=== PATIENT | male | born 1990 | race African-American/Black ===

== ENCOUNTER 2020-11-17 14:27 | Inpatient (IN) | payer OTHER, SELFPAY ==
--- NOTE | 2020-11-17 | ECG_ITS ---
Test Reason : CP Blood Pressure : / mmHG Vent. Rate : 057 BPM Atrial Rate : 057 BPM P-R Int : 186 ms QRS Dur : 084 ms QT Int : 422 ms P-R-T Axes : 062 041 057 degrees QTc Int : 410 ms Sinus bradycardia Otherwise normal ECG No previous ECGs available Referred By: Generic ED Physician Electronically Signed By:MAYANK GONZALEZ
--- NOTE | ~2020-11-17 | XR_ITS ---
EXAMINATION: XR chest 2V CLINICAL INFORMATION: Chest pain COMPARISON: No prior chest x-ray available in our system for comparison at the time of this dictation. TECHNIQUE: XR chest 2V Lungs and Precious: Both lungs are clear. Pleura: Normal. Costophrenic angles are sharp. No pneumothorax. Heart: The heart is normal in size. Mediastinum: The mediastinum is within normal limits.. Bones: Skeletal structures included are normal for patient's age. XR/XR chest 2V IMPRESSION: Normal chest x-ray.
[2020-11-17 14:30] VITALS: BP 111/62; PULSE 69; O2SAT 100
[2020-11-17 16:12] VITALS: BP 114/68; PULSE 60; RESP 18; TEMP 36.6; O2SAT 100; BMI 21.7
--- NOTE | 2020-11-17 18:08 | PC.NURSE ---
records being obtained from [facility], pt requesting us guided iv
--- NOTE | 2020-11-17 18:12 | ED.CHESTPAIN ---
HPI - Chest Pain General Chief Complaint: Chest Pain Stated Complaint: ACHY BREAKY HEART Time Seen by Provider: 11/17/20 16:32 Source: patient Mode of arrival: ambulatory Limitations: no limitations History of Present Illness HPI narrative: 30-year-old male with a past medical history of sickle cell disease coming in with complaints of body aches all over and chest discomfort which began last evening. Pain is constant. Denies any shortness of breath or cough. No fevers or chills. Feels similar to his previous sickle cell crisis. Took 4 mg of p.o. Dilaudid prior to arrival with continued pain. Note patient currently lives in [place] but is here visiting a friend. He tells me he normally goes to [facility] for his care and was admitted there 1 month ago for sickle cell crisis. He denies any history of acute chest. Related Data Home Medications Medication Instructions Recorded Confirmed folic acid 1 mg tablet 1 mg PO DAILY 11/17/20 11/17/20 hydromorphone 4 mg tablet 4 mg PO Q4H PRN 11/17/20 11/17/20 hydroxyurea 500 mg capsule 500 mg PO DAILY 11/17/20 11/17/20 Allergies Allergy/AdvReac Type Severity Reaction Status Date / Time ketorolac [From TORADOL] Allergy Unknown HIVES Unverified 12/14/19 19:40 morphine [MORPHINE] Allergy Unknown HIVES Unverified 12/14/19 19:40 shellfish derived Allergy Unknown HIVES Unverified 12/14/19 19:40 [SHELLFISH DERIVED] Review of Systems Review of Systems: Yes all other systems are reviewed and are negative Constitutional: Constitutional: Reports no additional constitutional complaints, Reports body ache(s), Denies chills, Denies fever(s), Denies headache(s) and Denies weakness Comments: Muscle ache Eyes: Eyes: Reports no additional eye complaints and Denies change in vision ENT: Reports system reviewed and no additional complaints, except as documented, Denies dizziness, Denies headache(s), Denies nasal congestion, Denies nasal discharge and Denies neck pain Cardiovascular: Cardiovascular: Reports no additional cardiovascular complaints, Reports chest pain, Denies leg edema and Denies dyspnea Respiratory: Respiratory: Reports no additional respiratory complaints, Denies cough and Denies dyspnea Gastrointestinal: Gastrointestinal: Reports no additional gastrointestinal complaints, Denies abdominal pain, Denies diarrhea, Denies nausea and Denies vomiting Genitourinary: Genitourinary: Denies urinary incontinence Musculoskeletal: Musculoskeletal: Reports no additional musculoskeletal complaints, Denies back pain, Denies arthralgias, Denies joint swelling, Denies neck pain, Denies numbness and Denies tingling Integumentary/Breasts: Skin/Breast: Reports system reviewed and no additional complaints, except as docu and Denies rash Neurologic: Reports system reviewed and no additional complaints, except as documented, Denies Abnormal speech present, Denies dizziness, Denies headache(s), Denies numbness, Denies tingling and Denies weakness PMFSH Past Medical History Attestation statement: The following information was validated with the patient. Source: old records reviewed and nursing notes reviewed Medical History Sickle cell anemia Social History Social History Alcohol intake: never Smoked in Last 30 Days: No Use of substances other than those prescribed or required for medical reasons: No Advance Directives: No Advance Directives Information Provided: No Physical Exam Vital Signs: Vital Signs: Last Vital Signs Temp 97.8 F 11/17/20 16:12 Pulse 71 11/17/20 20:26 Resp 16 11/17/20 20:26 BP 126/89 11/17/20 20:26 Pulse Ox 99 11/17/20 20:26 Body Mass Index 21.7 Const: General: cooperative, healthy appearing, comfortable and no acute distress Orientation/consciousness: patient oriented x3 Limitations: no limitations HENMT: Head: Yes normal to inspection Ears: hearing grossly normal bilaterally General nose exam: Normal external nose present Face and sinus: Yes normal facial exam Mouth: Normal oral and palatal mucosa present Throat: Yes posterior oropharynx normal Eyes: General: appearance normal, both eyes and all related structures Pupils: Equal, round and reactive pupils present Neck: Neck: Yes normal visual inspection, Yes full ROM and Yes no lymphadenopathy Chest: Other: Central chest tender to palpation. No obvious ecchymosis, crepitus or rash noted. Chest palpation & inspection: normal inspection of the chest Resp: Effort & Inspection: normal respiratory effort Auscultation: clear to auscultation bilaterally Cardio: Rate: regular rate Rhythm: regular rhythm Peripheral pulses: Peripheral pulses 2+ throughout GI: Inspection: Yes normal to inspection Palpation (GI): Soft to palpation and nontender Auscultation: normal bowel sounds Back/Spine/Pelvis: Thoracic/Lumbar Spine: thoracic and lumbar spine normal to inspection Skin: General skin exam: no rashes or lesions noted Neuro: General: patient oriented x3, no focal motor deficits and normal sensation to monofilament Cranial nerves: Yes Equal, round and reactive pupils present Cognition (Neuro): normal cognition Speech: No Abnormal speech present Gait exam (Neuro): Normal gait present Motor exam (neuro): 5/5 motor strength present throughout Extrem: General: Yes normal to inspection, Yes no pedal edema and Yes no calf tenderness Course Course Course Narrative: 30-year-old male with a past medical history of sickle cell disease here with complaints of sickle cell crisis. Patient describes his sickle cell crisis as body aches and muscle aches all over. This is unrelieved with his home Dilaudid. Patient is also complaining of some central chest pain which began last evening which is constant with no other associated symptoms. On exam the patient's chest is tender to palpate. Will need labs, EKG, chest x-ray. Will place PIV and give IV fluids and Dilaudid. 1950-Some improvement in pain. However requesting additional dose of dilaudid. This was ordered. We discussed admission but patient would like to discuss after second dose of meds. 2099-Continued pain all over. Will need admission. Call out to hospitalist to discuss. 2114-Spoke to Dr Palma who accepted admission. MDM - Chest Pain MDM Narrative Medical decision making narrative: Less likely ACS with negative EKG and troponin with symptoms since last evening Less likely PE with negative D-dimer, no clinical findings concerning for PE or DVT Medical Records Data Attestation: I reviewed the patient's medical records. Lab Data Attestation: I reviewed the patient's lab results. Result diagrams: 11/17/20 18:32 11/17/20 18:32 Labs: Lab Results 11/17/20 11/17/20 11/17/20 Range/Units 18:32 18:32 18:32 WBC 9.7 (4.8-10.8) X10*3/uL RBC 3.27 L (4.60-5.80) X10*6/uL Hgb 10.6 L (14.0-18.0) g/dl Hct 29.4 L (42-52) % MCV 89.9 (80-98) fL MCH 32.4 (27.0-33.0) pg MCHC 36.1 H (31.0-36.0) g/dl RDW 19.9 H (11.0-16.0) % Plt Count 270 (160-400) X10*3/uL MPV 9.9 (9.4-12.4) fL Immature Gran % (Auto) Cancelled Neut % (Auto) Cancelled Lymph % (Auto) Cancelled Archer % (Auto) Cancelled Eos % (Auto) Cancelled Baso % (Auto) Cancelled Lymph # (Auto) Cancelled Archer # (Auto) Cancelled Eos # (Auto) Cancelled Baso # (Auto) Cancelled Abs Immat Gran (auto) Cancelled Absolute Neuts (auto) Cancelled Absolute Nucleated RBC 0.120 H (0.0-0.012) X10*3/uL Nucleated RBC % (auto) 1.2 H (0.0-0.2) /100WBC Neutrophils % (Manual) 43 L (45-73) % Band Neutrophils % 0 L (3-5) % Lymphocytes % (Manual) 48 H (20-40) % Monocytes % (Manual) 6 (2-11) % Eosinophils % (Manual) 2 (0-4) % Basophils % (Manual) 1 (0-1) % Abs Neuts (Manual) 4.2 (2.2-7.9) X10*3/uL Lymphocytes # (Manual) 4.7 (0.6-4.8) X10*3/uL Monocytes # (Manual) 0.6 (0.0-1.2) X10*3/uL Eosinophils # (Manual) 0.2 (0.0-0.8) X10*3/UL Basophils # (Manual) 0.1 (0.0-0.3) X10*3/uL Nucleated RBCs 1 H (0-0) /100WBC Platelet Estimate NORMAL (NORMAL) Plt Morphology Comment NORMAL RBC Morphology NOTED Polychromasia 1+ (0-2) /OIF Microcytosis 1+ (5-14) /OIF Macrocytosis 1+ (5-14) /OIF Target Cells 2+ (15-30) /OIF Stomatocytes 1+ (5-14) /OIF Absolute Retic (0.026-0.095) X10*6/uL Percent Retic (0.5-1.8) % Immature Retic Fraction (2.3-13.4) % Retic Hgb Equivalent (30.0-35.0) pg PT (9.9-13.0) SEC INR (0.9-1.1) D-Dimer NG/ML Sodium 144 (135-145) mmol/L Potassium 3.9 (3.3-5.1) mmol/L Chloride 110 H (96-108) mmol/L Carbon Dioxide 27 (22-29) mmol/L Anion Gap 11 L (12-20) BUN 9 (9-16) mg/dL Creatinine 0.97 (0.5-1.4) mg/dL Estim Creat Clear Calc 102.1 Estimated GFR > 60 Random Glucose 116 H (60-115) mg/dL Lactic Acid (0.5-2.0) mmol/L Calcium 9.1 (8.4-10.2) mg/dL Magnesium 2.3 (1.6-2.6) mg/dL Total Bilirubin 3.7 H (0.0-1.0) mg/dL Direct Bilirubin 0.3 (0.0-0.5) mg/dL AST 20 (5-37) U/L ALT 20 (0-40) U/L Alkaline Phosphatase 57 (39-117) U/L Troponin I High Sens < 3.5 (<3.5-35.0) ng/L Total Protein 7.6 (6.5-8.0) g/dL Albumin 4.2 (3.5-5.0) g/dL COVID-19 (RAVIN) (Negative) COVID-19 Clin Com 11/17/20 11/17/20 11/17/20 Range/Units 18:32 18:32 18:32 WBC (4.8-10.8) X10*3/uL RBC (4.60-5.80) X10*6/uL Hgb (14.0-18.0) g/dl Hct (42-52) % MCV (80-98) fL MCH (27.0-33.0) pg MCHC (31.0-36.0) g/dl RDW (11.0-16.0) % Plt Count (160-400) X10*3/uL MPV (9.4-12.4) fL Immature Gran % (Auto) Neut % (Auto) Lymph % (Auto) Archer % (Auto) Eos % (Auto) Baso % (Auto) Lymph # (Auto) Archer # (Auto) Eos # (Auto) Baso # (Auto) Abs Immat Gran (auto) Absolute Neuts (auto) Absolute Nucleated RBC (0.0-0.012) X10*3/uL Nucleated RBC % (auto) (0.0-0.2) /100WBC Neutrophils % (Manual) (45-73) % Band Neutrophils % (3-5) % Lymphocytes % (Manual) (20-40) % Monocytes % (Manual) (2-11) % Eosinophils % (Manual) (0-4) % Basophils % (Manual) (0-1) % Abs Neuts (Manual) (2.2-7.9) X10*3/uL Lymphocytes # (Manual) (0.6-4.8) X10*3/uL Monocytes # (Manual) (0.0-1.2) X10*3/uL Eosinophils # (Manual) (0.0-0.8) X10*3/UL Basophils # (Manual) (0.0-0.3) X10*3/uL Nucleated RBCs (0-0) /100WBC Platelet Estimate (NORMAL) Plt Morphology Comment RBC Morphology Polychromasia /OIF Microcytosis /OIF Macrocytosis /OIF Target Cells /OIF Stomatocytes /OIF Absolute Retic 0.098 H (0.026-0.095) X10*6/uL Percent Retic 3.1 H (0.5-1.8) % Immature Retic Fraction 51.2 H (2.3-13.4) % Retic Hgb Equivalent 37.4 H (30.0-35.0) pg PT 13.1 H (9.9-13.0) SEC INR 1.2 H (0.9-1.1) D-Dimer 217 NG/ML Sodium (135-145) mmol/L Potassium (3.3-5.1) mmol/L Chloride (96-108) mmol/L Carbon Dioxide (22-29) mmol/L Anion Gap (12-20) BUN (9-16) mg/dL Creatinine (0.5-1.4) mg/dL Estim Creat Clear Calc Estimated GFR Random Glucose (60-115) mg/dL Lactic Acid 1.1 (0.5-2.0) mmol/L Calcium (8.4-10.2) mg/dL Magnesium (1.6-2.6) mg/dL Total Bilirubin (0.0-1.0) mg/dL Direct Bilirubin (0.0-0.5) mg/dL AST (5-37) U/L ALT (0-40) U/L Alkaline Phosphatase (39-117) U/L Troponin I High Sens (<3.5-35.0) ng/L Total Protein (6.5-8.0) g/dL Albumin (3.5-5.0) g/dL COVID-19 (RAVIN) (Negative) COVID-19 Clin Com 11/17/20 Range/Units 21:07 WBC (4.8-10.8) X10*3/uL RBC (4.60-5.80) X10*6/uL Hgb (14.0-18.0) g/dl Hct (42-52) % MCV (80-98) fL MCH (27.0-33.0) pg MCHC (31.0-36.0) g/dl RDW (11.0-16.0) % Plt Count (160-400) X10*3/uL MPV (9.4-12.4) fL Immature Gran % (Auto) Neut % (Auto) Lymph % (Auto) Archer % (Auto) Eos % (Auto) Baso % (Auto) Lymph # (Auto) Archer # (Auto) Eos # (Auto) Baso # (Auto) Abs Immat Gran (auto) Absolute Neuts (auto) Absolute Nucleated RBC (0.0-0.012) X10*3/uL Nucleated RBC % (auto) (0.0-0.2) /100WBC Neutrophils % (Manual) (45-73) % Band Neutrophils % (3-5) % Lymphocytes % (Manual) (20-40) % Monocytes % (Manual) (2-11) % Eosinophils % (Manual) (0-4) % Basophils % (Manual) (0-1) % Abs Neuts (Manual) (2.2-7.9) X10*3/uL Lymphocytes # (Manual) (0.6-4.8) X10*3/uL Monocytes # (Manual) (0.0-1.2) X10*3/uL Eosinophils # (Manual) (0.0-0.8) X10*3/UL Basophils # (Manual) (0.0-0.3) X10*3/uL Nucleated RBCs (0-0) /100WBC Platelet Estimate (NORMAL) Plt Morphology Comment RBC Morphology Polychromasia /OIF Microcytosis /OIF Macrocytosis /OIF Target Cells /OIF Stomatocytes /OIF Absolute Retic (0.026-0.095) X10*6/uL Percent Retic (0.5-1.8) % Immature Retic Fraction (2.3-13.4) % Retic Hgb Equivalent (30.0-35.0) pg PT (9.9-13.0) SEC INR (0.9-1.1) D-Dimer NG/ML Sodium (135-145) mmol/L Potassium (3.3-5.1) mmol/L Chloride (96-108) mmol/L Carbon Dioxide (22-29) mmol/L Anion Gap (12-20) BUN (9-16) mg/dL Creatinine (0.5-1.4) mg/dL Estim Creat Clear Calc Estimated GFR Random Glucose (60-115) mg/dL Lactic Acid (0.5-2.0) mmol/L Calcium (8.4-10.2) mg/dL Magnesium (1.6-2.6) mg/dL Total Bilirubin (0.0-1.0) mg/dL Direct Bilirubin (0.0-0.5) mg/dL AST (5-37) U/L ALT (0-40) U/L Alkaline Phosphatase (39-117) U/L Troponin I High Sens (<3.5-35.0) ng/L Total Protein (6.5-8.0) g/dL Albumin (3.5-5.0) g/dL COVID-19 (RAVIN) Negative (Negative) COVID-19 Clin Com See Note Imaging Data Chest x-ray: Attestation: I personally reviewed and interpreted this imaging study as follows: Radiologist's impression: [id number] [place] [id number] XRay Report Signed Patient: Tyrell Byrd MR#: [id number] : 1990 Acct:[id number] Age/Sex: 30 / M ADM Date: 11/17/20 Loc: [facility].ED Attending Dr: Ordering Physician: Christine Marley NP Date of Service: 11/17/20 Procedure(s): XR chest 2V Accession Number(s): [id number] cc: Christine Marley NP~ EXAMINATION: XR chest 2V CLINICAL INFORMATION: Chest pain COMPARISON: No prior chest x-ray available in our system for comparison at the time of this dictation.? TECHNIQUE: XR chest 2V Lungs and Percious: Both lungs are clear. Pleura: Normal. Costophrenic angles are sharp. No pneumothorax. Heart: The heart is normal in size. Mediastinum: The mediastinum is within normal limits.. Bones: Skeletal structures included are normal for patient's age. XR/XR chest 2V IMPRESSION: Normal chest x-ray. ECG Data ECG #1: Attestation: I personally reviewed and interpreted this ECG as follows: ECG interpretation date: 11/17/20 ECG interpretation time: 16:22 Interpretation: Sinus bradycardia with rate of 57, normal ND, normal QRS, normal QT Discharge Plan Discharge Clinical Impression: Sickle cell crisis Patient Disposition: Admitted As Inpatient
[2020-11-17] MEDS: 0.9 % Sodium Chloride 1,000 ML 999 ML IV (18:33)
[2020-11-17 18:49] LABS: Hematocrit 29.4 % (42-52); Hemoglobin 10.6 g/dl (14.0-18.0); INTERNATIONAL NORM RATIO 1.2 (0.9-1.1); Mean Corpuscular HGB Conc 36.1 g/dl (31.0-36.0); Mean Corpuscular Hemoglobin 32.4 pg (27.0-33.0); Mean Corpuscular Volume 89.9 fL (80-98); Mean Platelet Volume 9.9 fL (9.4-12.4); Platelet Count 270 X10*3/uL (160-400); Prothrombin Time 13.1 SEC (9.9-13.0); Red Blood Count 3.27 X10*6/uL (4.60-5.80); Red Cell Distribution Width 19.9 % (11.0-16.0); White Blood Count 9.7 X10*3/uL (4.8-10.8)
[2020-11-17] MEDS: HYDROmorphone HCl 2 MG/ML VIAL IVPUSH ×3 (18:54→23:03)
[2020-11-17] MEDS: diphenhydrAMINE HCL 50 MG/ML VIAL 25 MG IVPUSH ×2 (18:55→20:25)
[2020-11-17 18:57] VITALS: BP 111/75; PULSE 64; RESP 16; O2SAT 98
[2020-11-17 18:58] LABS: Lactic Acid 1.1 mmol/L (0.5-2.0)
--- NOTE | 2020-11-17 18:59 | PC.NURSE ---
Pt medicated per MAR. VSS. Call ceballos within reach, continue to monitor.
[2020-11-17 19:02] LABS: Immature Retic Fraction 51.2 % (2.3-13.4); Retic HGB Equivalent 37.4 pg (30.0-35.0); Reticulocyte Percent 3.1 % (0.5-1.8); Reticulocytes Absolute 0.098 X10*6/uL (0.026-0.095)
[2020-11-17 19:03] LABS: Alanine Aminotransferase 20 U/L (0-40); Albumin Level 4.2 g/dL (3.5-5.0); Alkaline Phosphatase 57 U/L (39-117); Anion Gap 11 (12-20); Aspartate Amino Transferase 20 U/L (5-37); Bilirubin Direct 0.3 mg/dL (0.0-0.5); Bilirubin Total 3.7 mg/dL (0.0-1.0); Blood Urea Nitrogen 9 mg/dL (9-16); Calcium 9.1 mg/dL (8.4-10.2); Carbon Dioxide 27 mmol/L (22-29); Chloride 110 mmol/L (96-108); Creatinine Clr Calc Pharmacy 102.1; Estimated Glomerular Filt Rate > 60; Glucose Random 116 mg/dL (60-115); Magnesium 2.3 mg/dL (1.6-2.6); Potassium 3.9 mmol/L (3.3-5.1); Sodium 144 mmol/L (135-145); Total Protein 7.6 g/dL (6.5-8.0)
[2020-11-17 19:04] LABS: NRBC Pct Auto 1.2 /100WBC (0.0-0.2)
[2020-11-17 19:07] LABS: Troponin-I High Sensitivity < 3.5 ng/L (<3.5-35.0)
--- NOTE | 2020-11-17 19:23 | PC.NURSE ---
Pt provided with food/drink per request.
[2020-11-17 19:24] LABS: D Dimer 217 NG/ML
[2020-11-17 19:32] LABS: Band Neutrophils Percent 0 % (3-5); Basophils Abs Manual 0.1 X10*3/uL (0.0-0.3); Basophils Percent Manual 1 % (0-1); Eosinophils Absolute Manual 0.2 X10*3/UL (0.0-0.8); Eosinophils Percent Manual 2 % (0-4); Lymphocytes Absolute Manual 4.7 X10*3/uL (0.6-4.8); Lymphocytes Percent Manual 48 % (20-40); Monocytes Absolute Manual 0.6 X10*3/uL (0.0-1.2); Monocytes Percent Manual 6 % (2-11); Neutrophils Absolute Manual 4.2 X10*3/uL (2.2-7.9); Neutrophils Percent Manual 43 % (45-73); Nucleated Red Blood Cells 1 /100WBC (0-0); RBC Morphology NOTED
[2020-11-17 19:33] LABS: Polychromasia 1+ (0-2) /OIF; Stomatocytes 1+ (5-14) /OIF
[2020-11-17 19:35] LABS: Microcytosis 1+ (5-14) /OIF; Platelet Estimate NORMAL (NORMAL)
[2020-11-17 19:37] LABS: Target Cells 2+ (15-30) /OIF
[2020-11-17 19:39] LABS: Macrocytosis 1+ (5-14) /OIF; Platelet Morphology Comment NORMAL
[2020-11-17 20:26] VITALS: BP 126/89; PULSE 71; RESP 16; O2SAT 99
--- NOTE | 2020-11-17 21:00 | PC.NURSE ---
COFFEE SOMMELIER at bedside discussing plan to admit as pt reports minimal relief after pain medications.
--- NOTE | 2020-11-17 21:09 | PC.NURSE ---
Pt continuously asking for food/drink, provided with such per request. Covid swab obtained, Med Rec complete. Pt states he has been noncompliant with his medications as he was locked up last month and did not have access to them. Pt aware of plan for admission.
[2020-11-17 21:21] LABS: COVID-19 Test Negative (Negative); IDNOW Serial# 08D9AD1C
--- NOTE | 2020-11-17 22:50 | PC.NURSE ---
Pt found wandering the halls. Pt frustrated and upset, yelling at staff, states I've had a really bad day!!! Pt requesting to go to the vending machine for food/drink. Pt previously escorted to the vending machine but another staff member but pt did not have lynn/credit card. Pt requesting pain medication, recently seen by hospitalist. This RN explaining to pt that his pain medication needs to be verified by pharmacy before this RN can administer it. Pt requesting his IV out and to leave. Hospitalist at bedside discussing plan for admission with pt, offering pt AMA paperwork, pt refusing to sign paperwork, states I'll just stay. Security aware that pt has attempted to leave twice and has an IV in. This RN explaining to pt that he can leave if he chooses but the IV must be removed.
[2020-11-17] MEDS: 0.9 % Sodium Chloride 1,000 ML 150 ML IV (23:02)
[2020-11-18] VITALS (10 sets, daily range): BP systolic 106–126; BP diastolic 56–75; PULSE 63–82; RESP 16–20; TEMP 36.5–36.9; O2SAT 95–100
--- NOTE | 2020-11-18 00:35 | P.HPHOSP_ITS ---
History of Present Illness Date of Service: 11/17/20 Chief Complaint: Whole body pain 30-year-old male with history of sickle cell disease, who presented with whole body pain. History is from the patient and from ED notes. Patient endorses that he started having whole body pain earlier today. The pain is especially bad in his chest. He recognizes this as a sickle cell crisis pain. Otherwise, he denies shortness of breath, fever, chills, nausea or vomiting. In the ED, vitals were significant for pulses high as 101, otherwise vitals were unremarkable. Pertinent labs include hemoglobin of 10.6, reticulocyte% 3.1 (high), total bilirubin 3.7. Chest x-ray was negative for acute abnormality. EKG revealed sinus bradycardia with a ventricular rate of 57 and a QTC of 410. In the ED, the patient was treated with a total of 4 mg of IV Dilaudid, and 1 L IV fluid bolus. He is being admitted for sickle cell pain crisis. Review of Systems Review of Systems: Constitutional: ?No Weight Change, No Fever, No Chills, No Night Sweats, No Fatigue. Positive for Malaise ENT/Mouth: ?No Hearing Changes, No Ear Pain, No Nasal Congestion, No Sinus Pain, No Hoarseness, No sore throat, No Rhinorrhea, No Swallowing Difficulty Eyes: ?No Eye Pain, No Swelling, No Redness, No Discharge, No Vision Changes Cardiovascular: Positive for Chest Pain (and whole body pain). No SOB, No Orthopnea, No Claudication, No Edema, No Palpitations Respiratory: ?No Cough, No Sputum, No Wheezing, No Smoke Exposure, No Dyspnea on Exertion, No Dyspnea Gastrointestinal: Positive for generalized abdominal pain. ?No Nausea, No Vomiting, No Diarrhea, No Constipation, No Heartburn, No Anorexia, No Dysphagia, No Hematochezia, No Melena, No Jaundice Genitourinary: ?No Dysuria, No Urinary Frequency, No Hematuria, No Flank Pain Musculoskeletal: ?No Joint Swelling, No Joint Stiffness. Positive for Back and Neck Pain Skin: ?No Skin Lesions, No Pruritis Neuro: ?No Weakness, No Numbness, No Paresthesias, No Loss of Consciousness, No Syncope, No Dizziness, No Headache, No Coordination Changes, No Recent Falls Psych: ?No Anxiety/Panic, No Depression, No Insomnia, No Personality Changes, No Delusions, No Suicidal Ideation /Homicidal Ideation /Auditory Hallucinations /Visual Hallucinations Heme/Lymph: ?No Bruising, No Bleeding, No Transfusions History, No Lymphadenopathy Endocrine: ?No Polyuria, No Polydipsia, No Temperature Intolerance [facility] Medical History (Updated 11/18/20 @ 00:41 by Malik Palma MD) Sickle cell anemia Pertinent family history: Mother was healthy. Patient does not know father's medical history. Surgical History (Updated 11/18/20 @ 00:38 by Malik Palma MD) H/O adenoidectomy Social History Alcohol intake: never Smoked in Last 30 Days: No Use of substances other than those prescribed or required for medical reasons: No Advance Directives: No Advance Directives Information Provided: No Meds Allergies Allergy/AdvReac Type Severity Reaction Status Date / Time ketorolac [From TORADOL] Allergy Unknown HIVES Unverified 12/14/19 19:40 morphine [MORPHINE] Allergy Unknown HIVES Unverified 12/14/19 19:40 shellfish derived Allergy Unknown HIVES Unverified 12/14/19 19:40 [SHELLFISH DERIVED] Active Medications: Current Medications Generic Name Dose Route Start Last Admin Trade Name Freq PRN Reason Stop Dose Admin Enoxaparin Sodium 40 mg 11/17/20 22:45 11/17/20 23:03 Enoxaparin Sodium 40 Mg/0.4 Ml Syringe SUBCUT Not Given Q24H LATASHA Folic Acid 1 mg 11/18/20 09:00 Folic Acid 1 Mg Tablet PO DAILY LATASHA Hydromorphone HCl 2 mg 11/17/20 22:34 11/17/20 23:03 Hydromorphone Hcl 2 Mg/Ml Vial IVPUSH 2 mg Q3H PRN Administration Pain, Severe (Pain Scale 7-10) Protocol Hydroxyurea 500 mg 11/18/20 09:00 Hydroxyurea 500 Mg Capsule PO DAILY LATASHA Sodium Chloride 1,000 mls @ 150 mls/hr 11/17/20 22:45 11/17/20 23:02 Ns IV 11/18/20 18:44 150 mls/hr .Q6H40M LATASHA Administration Sodium Chloride 3 ml 11/18/20 00:00 0.9 % Sodium Chloride Flush 3 Ml Syringe IVFLUSH QSHIFT [facility] Home Medications Medication Instructions Recorded Confirmed Last Taken Type folic acid 1 mg tablet 1 mg PO DAILY 11/17/20 11/17/20 11/10/20 History hydromorphone 4 mg tablet 4 mg PO Q4H PRN 11/17/20 11/17/20 10/13/20 History hydroxyurea 500 mg capsule 500 mg PO DAILY 11/17/20 11/17/20 11/10/20 History Physical Exam Vital Signs and Narrative: Vital Signs: Last Vital Signs Temp 97.8 F 11/17/20 16:12 Pulse 71 11/17/20 20:26 Resp 16 11/17/20 20:26 BP 126/89 11/17/20 20:26 Pulse Ox 99 11/17/20 20:26 Body Mass Index 21.7 GENERAL APPEARANCE: Appears chronically ill, lower then normal BMI. Alert and cooperative, and appears to be in no acute distress. HEAD: Normocephalic. EYES: PERRL, EOMI. Vision is grossly intact. EARS: Hearing grossly intact. NOSE: No nasal discharge. THROAT: Oral cavity and pharynx normal. No inflammation, swelling, exudate, or lesions. NECK: Neck supple, non-tender without lymphadenopathy, masses or thyromegaly. CARDIAC: Normal S1 and S2. No S3, S4 or murmurs. Rhythm is regular. There is no peripheral edema, cyanosis or pallor. Extremities are warm and well perfused. LUNGS: Clear to auscultation and percussion without rales, rhonchi, wheezing or diminished breath sounds. ABDOMEN: Positive bowel sounds. Soft, nondistended, mildly tender diffusely. No guarding or rebound. No masses. MUSKULOSKELETAL: Examination of both shoulders, elbows, wrists, ankles, knees, legs, and hips reveals normal range of motion, normal sensation, no swelling, no discoloration, no deformity. Peripheral pulses intact. NEUROLOGICAL: CN II-XII intact. Strength and sensation symmetric and intact throughout. SKIN: Skin normal color, texture and turgor with no lesions or eruptions. PSYCHIATRIC: The mental examination revealed the patient was oriented to person, place, and time. The patient was able to demonstrate good judgement and reason, without hallucinations, abnormal affect or abnormal behaviors during the examination. Results Labs CBC and Chem 7: 11/17/20 18:32 11/17/20 18:32 Labs: Laboratory Results - last 24 hr 11/17/20 11/17/20 11/17/20 18:32 18:32 18:32 MCV 89.9 MCH 32.4 MCHC 36.1 H RDW 19.9 H Plt Count 270 MPV 9.9 Immature Gran % (Auto) Cancelled Neut % (Auto) Cancelled Lymph % (Auto) Cancelled [place] % (Auto) Cancelled Eos % (Auto) Cancelled Baso % (Auto) Cancelled Lymph # (Auto) Cancelled [place] # (Auto) Cancelled Eos # (Auto) Cancelled Baso # (Auto) Cancelled Abs Immat Gran (auto) Cancelled Absolute Neuts (auto) Cancelled Absolute Nucleated RBC 0.120 H Nucleated RBC % (auto) 1.2 H Neutrophils % (Manual) 43 L Band Neutrophils % 0 L Lymphocytes % (Manual) 48 H Monocytes % (Manual) 6 Eosinophils % (Manual) 2 Basophils % (Manual) 1 Abs Neuts (Manual) 4.2 Lymphocytes # (Manual) 4.7 Monocytes # (Manual) 0.6 Eosinophils # (Manual) 0.2 Basophils # (Manual) 0.1 Nucleated RBCs 1 H Platelet Estimate NORMAL Plt Morphology Comment NORMAL RBC Morphology NOTED Polychromasia 1+ (0-2) Microcytosis 1+ (5-14) Macrocytosis 1+ (5-14) Target Cells 2+ (15-30) Stomatocytes 1+ (5-14) Absolute Retic Percent Retic Immature Retic Fraction Retic Hgb Equivalent PT INR D-Dimer Anion Gap 11 L Estim Creat Clear Calc 102.1 Estimated GFR > 60 Random Glucose 116 H Lactic Acid Calcium 9.1 Magnesium 2.3 Total Bilirubin 3.7 H Direct Bilirubin 0.3 AST 20 ALT 20 Alkaline Phosphatase 57 Troponin I High Sens < 3.5 Total Protein 7.6 Albumin 4.2 COVID-19 (RAVIN) COVID-19 Clin Com 11/17/20 11/17/20 11/17/20 18:32 18:32 18:32 MCV MCH MCHC RDW Plt Count MPV Immature Gran % (Auto) Neut % (Auto) Lymph % (Auto) [place] % (Auto) Eos % (Auto) Baso % (Auto) Lymph # (Auto) [place] # (Auto) Eos # (Auto) Baso # (Auto) Abs Immat Gran (auto) Absolute Neuts (auto) Absolute Nucleated RBC Nucleated RBC % (auto) Neutrophils % (Manual) Band Neutrophils % Lymphocytes % (Manual) Monocytes % (Manual) Eosinophils % (Manual) Basophils % (Manual) Abs Neuts (Manual) Lymphocytes # (Manual) Monocytes # (Manual) Eosinophils # (Manual) Basophils # (Manual) Nucleated RBCs Platelet Estimate Plt Morphology Comment RBC Morphology Polychromasia Microcytosis Macrocytosis Target Cells Stomatocytes Absolute Retic 0.098 H Percent Retic 3.1 H Immature Retic Fraction 51.2 H Retic Hgb Equivalent 37.4 H PT 13.1 H INR 1.2 H D-Dimer 217 Anion Gap Estim Creat Clear Calc Estimated GFR Random Glucose Lactic Acid 1.1 Calcium Magnesium Total Bilirubin Direct Bilirubin AST ALT Alkaline Phosphatase Troponin I High Sens Total Protein Albumin COVID-19 (RAVIN) COVID-19 Baboo Com 11/17/20 21:07 MCV MCH MCHC RDW Plt Count MPV Immature Gran % (Auto) Neut % (Auto) Lymph % (Auto) [place] % (Auto) Eos % (Auto) Baso % (Auto) Lymph # (Auto) [place] # (Auto) Eos # (Auto) Baso # (Auto) Abs Immat Gran (auto) Absolute Neuts (auto) Absolute Nucleated RBC Nucleated RBC % (auto) Neutrophils % (Manual) Band Neutrophils % Lymphocytes % (Manual) Monocytes % (Manual) Eosinophils % (Manual) Basophils % (Manual) Abs Neuts (Manual) Lymphocytes # (Manual) Monocytes # (Manual) Eosinophils # (Manual) Basophils # (Manual) Nucleated RBCs Platelet Estimate Plt Morphology Comment RBC Morphology Polychromasia Microcytosis Macrocytosis Target Cells Stomatocytes Absolute Retic Percent Retic Immature Retic Fraction Retic Hgb Equivalent PT INR D-Dimer Anion Gap Estim Creat Clear Calc Estimated GFR Random Glucose Lactic Acid Calcium Magnesium Total Bilirubin Direct Bilirubin AST ALT Alkaline Phosphatase Troponin I High Sens Total Protein Albumin COVID-19 (RAVIN) Negative COVID-19 Clin Com See Note Imaging Radiologist's Impressions: Impressions Chest X-Ray 11/17/20 18:06 IMPRESSION: Normal chest x-ray. Assessment and Plan (1) Sickle cell crisis: Status: Acute (2) Sickle cell anemia: Status: Acute Sickle cell pain crisis: -patient has adequate reticulocyte response, and chest x-ray is negative for acute chest -status post a total of 4 mg of IV Dilaudid in the ED, as well as 1 L IV fluid bolus in the ED -pain: IV Dilaudid 2 mg q.3 hours p.r.n. -hydration: Normal saline at 150 cc/hour continuous -morning team can consider Hematology consult Sickle cell anemia: -continue home folic acid, hydroxyurea FEN: Regular diet CODE STATUS: FULL CODE DISPO: Admit to Observation Quality Stroke Does the patient have a stroke diagnosis?: No VTE Prior VTE?: No VTE Risk Level:: Medical - moderate - high VTE Device Contraindication: Treatment Not Indicated VTE Drug Contraindication: N/A - Med Ordered
[2020-11-18] MEDS: 0.9 % Sodium Chloride Flush 3 ML SYRINGE IVFLUSH ×2 (00:47→08:18)
--- NOTE | 2020-11-18 01:58 | PC.NURSE ---
this RN assisting primary RN. This RN to bedside, pt awake and resting on stretcher in NAD, breathing with ease on RA. Pt's skin warm dry and normal in appearance for age and race. Pt c/o 12/06 generalized body pain. Pt to be medicated with pain meds per MAY. Stretcher remains in low, locked position. rails raised, call ceballos within reach.
--- NOTE | 2020-11-18 02:00 | PC.NURSE ---
this rn noticed allergies were unverified. this rn verified allergies with pt. this rn to medicate with dilaudid. a warning pops up to notify of morphine allergy. pt confirms morphine allergy and reports he has no reaction to dilauded. this rn verified in MAY that pt has previously rec'd dilaudid during this hospital visit without rxn.
[2020-11-18] MEDS: HYDROmorphone HCl 2 MG/ML VIAL IVPUSH ×8 (02:03→23:31)
--- NOTE | 2020-11-18 03:35 | PC.NURSE ---
Pt ambulating to and from the bathroom with a steady gait. Pt requesting PO Jenniffer, Hospitalist aware.
[2020-11-18] MEDS: diphenhydrAMINE HCL 25 MG TABLET 50 MG PO (04:16)
[2020-11-18] MEDS: 0.9 % Sodium Chloride 1,000 ML 150 ML IV (05:18)
[2020-11-18] MEDS: Folic Acid 1 MG TABLET PO (08:19)
[2020-11-18] MEDS: Hydroxyurea 500 MG CAPSULE PO (08:43)
[2020-11-18] MEDS: Lactated Ringers 1,000 ML 150 ML IVCONT ×2 (08:47→16:03)
--- NOTE | 2020-11-18 10:18 | HO.PM.IMPN ---
Subjective Subjective Date of Service: 11/18/20 Interval History: seen and examined this AM, boarding in the ED still in pain Review of Systems General - no fevers or chills, diffuse pain Cardiovascular - no chest pain Respiratory - no shortness of breath or cough Abdominal- no abdominal pain, nausea, vomiting, diarrhea Physical Exam Vital Signs: Vital Signs: Last Vital Signs Temp 97.8 F 11/17/20 16:12 Pulse 80 11/18/20 08:22 Resp 18 11/18/20 08:22 BP 118/69 11/18/20 08:22 Pulse Ox 98 11/18/20 08:22 Body Mass Index 21.7 Const: Other: General - no acute distress, appears comfortable Cardiovascular - regular rate and rhythm, S1-S2 Lungs - normal respiratory effort, clear to auscultation bilaterally, no wheezing Abdomen - soft, nontender, no rebound or guarding Extremities - no edema bilaterally Neuro - awake and alert, no focal deficits Objective Data Current Medications Generic Name Dose Route Start Last Admin Trade Name Freq PRN Reason Stop Dose Admin Diphenhydramine HCl 50 mg 11/18/20 10:17 Diphenhydramine Hcl 50 Mg/Ml Vial IVPUSH Q6H PRN Itching Enoxaparin Sodium 40 mg 11/17/20 22:45 11/17/20 23:03 Enoxaparin Sodium 40 Mg/0.4 Ml Syringe SUBCUT Not Given Q24H LATASHA Folic Acid 1 mg 11/18/20 09:00 11/18/20 08:19 Folic Acid 1 Mg Tablet PO 1 mg DAILY LATASHA Administration Hydromorphone HCl 2 mg 11/17/20 22:34 11/18/20 08:18 Hydromorphone Hcl 2 Mg/Ml Vial IVPUSH 2 mg Q3H PRN Administration Pain, Severe (Pain Scale 7-10) Protocol Hydroxyurea 500 mg 11/18/20 09:00 11/18/20 08:43 Hydroxyurea 500 Mg Capsule PO 500 mg DAILY LATASHA Administration Lactated Ringer's 1,000 mls @ 150 mls/hr 11/18/20 08:45 11/18/20 08:47 Lr IVCONT 150 mls/hr .Q6H40M LATASHA Administration Sodium Chloride 3 ml 11/18/20 00:00 11/18/20 08:18 0.9 % Sodium Chloride Flush 3 Ml Syringe IVFLUSH 3 ml QSHIFT [facility] Administration Labs CBC & Chem 7: 11/17/20 18:32 11/17/20 18:32 Labs: Laboratory Results - last 24 hr 11/17/20 11/17/20 11/17/20 18:32 18:32 18:32 MCV 89.9 MCH 32.4 MCHC 36.1 H RDW 19.9 H Plt Count 270 MPV 9.9 Immature Gran % (Auto) Cancelled Neut % (Auto) Cancelled Lymph % (Auto) Cancelled [place] % (Auto) Cancelled Eos % (Auto) Cancelled Baso % (Auto) Cancelled Lymph # (Auto) Cancelled [place] # (Auto) Cancelled Eos # (Auto) Cancelled Baso # (Auto) Cancelled Abs Immat Gran (auto) Cancelled Absolute Neuts (auto) Cancelled Absolute Nucleated RBC 0.120 H Nucleated RBC % (auto) 1.2 H Neutrophils % (Manual) 43 L Band Neutrophils % 0 L Lymphocytes % (Manual) 48 H Monocytes % (Manual) 6 Eosinophils % (Manual) 2 Basophils % (Manual) 1 Abs Neuts (Manual) 4.2 Lymphocytes # (Manual) 4.7 Monocytes # (Manual) 0.6 Eosinophils # (Manual) 0.2 Basophils # (Manual) 0.1 Nucleated RBCs 1 H Platelet Estimate NORMAL Plt Morphology Comment NORMAL RBC Morphology NOTED Polychromasia 1+ (0-2) Microcytosis 1+ (5-14) Macrocytosis 1+ (5-14) Target Cells 2+ (15-30) Stomatocytes 1+ (5-14) Smear Path Review SEE NOTE Absolute Retic Percent Retic Immature Retic Fraction Retic Hgb Equivalent PT INR D-Dimer Anion Gap 11 L Estim Creat Clear Calc 102.1 Estimated GFR > 60 Random Glucose 116 H Lactic Acid Calcium 9.1 Magnesium 2.3 Total Bilirubin 3.7 H Direct Bilirubin 0.3 AST 20 ALT 20 Alkaline Phosphatase 57 Troponin I High Sens < 3.5 Total Protein 7.6 Albumin 4.2 COVID-19 (RAVIN) COVID-19 Clin Com 11/17/20 11/17/20 11/17/20 18:32 18:32 18:32 MCV MCH MCHC RDW Plt Count MPV Immature Gran % (Auto) Neut % (Auto) Lymph % (Auto) [place] % (Auto) Eos % (Auto) Baso % (Auto) Lymph # (Auto) [place] # (Auto) Eos # (Auto) Baso # (Auto) Abs Immat Gran (auto) Absolute Neuts (auto) Absolute Nucleated RBC Nucleated RBC % (auto) Neutrophils % (Manual) Band Neutrophils % Lymphocytes % (Manual) Monocytes % (Manual) Eosinophils % (Manual) Basophils % (Manual) Abs Neuts (Manual) Lymphocytes # (Manual) Monocytes # (Manual) Eosinophils # (Manual) Basophils # (Manual) Nucleated RBCs Platelet Estimate Plt Morphology Comment RBC Morphology Polychromasia Microcytosis Macrocytosis Target Cells Stomatocytes Smear Path Review Absolute Retic 0.098 H Percent Retic 3.1 H Immature Retic Fraction 51.2 H Retic Hgb Equivalent 37.4 H PT 13.1 H INR 1.2 H D-Dimer 217 Anion Gap Estim Creat Clear Calc Estimated GFR Random Glucose Lactic Acid 1.1 Calcium Magnesium Total Bilirubin Direct Bilirubin AST ALT Alkaline Phosphatase Troponin I High Sens Total Protein Albumin COVID-19 (RAVIN) COVID-19 1CLICK 11/17/20 21:07 MCV MCH MCHC RDW Plt Count MPV Immature Gran % (Auto) Neut % (Auto) Lymph % (Auto) [place] % (Auto) Eos % (Auto) Baso % (Auto) Lymph # (Auto) [place] # (Auto) Eos # (Auto) Baso # (Auto) Abs Immat Gran (auto) Absolute Neuts (auto) Absolute Nucleated RBC Nucleated RBC % (auto) Neutrophils % (Manual) Band Neutrophils % Lymphocytes % (Manual) Monocytes % (Manual) Eosinophils % (Manual) Basophils % (Manual) Abs Neuts (Manual) Lymphocytes # (Manual) Monocytes # (Manual) Eosinophils # (Manual) Basophils # (Manual) Nucleated RBCs Platelet Estimate Plt Morphology Comment RBC Morphology Polychromasia Microcytosis Macrocytosis Target Cells Stomatocytes Smear Path Review Absolute Retic Percent Retic Immature Retic Fraction Retic Hgb Equivalent PT INR D-Dimer Anion Gap Estim Creat Clear Calc Estimated GFR Random Glucose Lactic Acid Calcium Magnesium Total Bilirubin Direct Bilirubin AST ALT Alkaline Phosphatase Troponin I High Sens Total Protein Albumin COVID-19 (RAVIN) Negative COVID-19 Clin Com See Note Assessment and Plan (1) Sickle cell anemia: Status: Acute Assessment and Plan: This is a 30 yo M with a PMH of sickle cell anemia who is admitted for pain crisis 1. Sickle cell anemia / pain crisis clinically appears comfortable and not in pain IV dialudid IVF -- change NS to LR continue folate / hydroxyurea full code dvt pptx, lovenox Quality Stroke Does the patient have a stroke diagnosis?: No VTE Prior VTE?: No VTE Risk Level:: Medical - moderate - high VTE Device Contraindication: Treatment Not Indicated VTE Drug Contraindication: N/A - Med Ordered
[2020-11-18] MEDS: diphenhydrAMINE HCL 50 MG/ML VIAL IVPUSH ×3 (11:13→23:31)
--- NOTE | 2020-11-18 13:44 | PC.NURSE ---
CALL TO FLOOR WITH REPORT,WILL CALL BACK
--- NOTE | 2020-11-18 15:53 | MHC.CM.PN ---
CM met with Patient at bedside. Patient states that he lives in a house in [facility], with his Mother and his goal for dc is to return home, by bus, no services. CM has initiated and will follow for dc planning. Patient states that he is just out of nursing home on 11/13/20. Patient states that he has a PCP, but he cannot recall the name.
[2020-11-19] VITALS (8 sets, daily range): BP systolic 111–143; BP diastolic 58–74; PULSE 67–80; RESP 18–20; TEMP 36.1–37.1; O2SAT 96–98
[2020-11-19] MEDS: HYDROmorphone HCl 2 MG/ML VIAL IVPUSH ×6 (02:23→20:58)
[2020-11-19] MEDS: diphenhydrAMINE HCL 50 MG/ML VIAL IVPUSH ×4 (05:26→20:58)
[2020-11-19] MEDS: Lactated Ringers 1,000 ML 150 ML IVCONT ×2 (05:26→21:02)
[2020-11-19] MEDS: 0.9 % Sodium Chloride Flush 3 ML SYRINGE IVFLUSH ×3 (08:25→20:58)
[2020-11-19] MEDS: Hydroxyurea 500 MG CAPSULE PO (08:26)
[2020-11-19] MEDS: Folic Acid 1 MG TABLET PO (08:26)
--- NOTE | 2020-11-19 13:24 | HO.PM.IMPN ---
Subjective Subjective Date of Service: 11/19/20 Interval History: the patient was seen and evaluated this morning Laying in bed, feels little better today but pain still significantly high Still asking for the IV Dilaudid Denies any fever, chills or shortness of breath No reported other overnight events. Systemic review: No fever, chills but No chest pain, palpitation No shortness of breath or coughing No abdominal pain, nausea or vomiting No urinary symptoms No any rash or wounds Physical Exam Vital Signs: Vital Signs: Last Vital Signs Temp 97 F 11/19/20 10:56 Pulse 80 11/19/20 10:56 Resp 18 11/19/20 10:56 BP 143/64 H 11/19/20 10:56 Pulse Ox 96 11/19/20 10:56 Body Mass Index 21.7 Const: Other: Constitutional : Alert, oriented, not in distress Neck : Normal inspection, Supple Cardiovascular : RRR, S1 S2, no lower extremity edema Respiratory : Fair bilateral air entry, no crackles, wheezes or rhonchi Gastrointestinal: soft, lax, Normal bowel sounds, Non tender Skin : Warm, Dry Neurological : Alert & oriented x3, No focal deficit Objective Data Current Medications Generic Name Dose Route Start Last Admin Trade Name Freq PRN Reason Stop Dose Admin Diphenhydramine HCl 50 mg 11/19/20 10:31 11/19/20 12:46 Diphenhydramine Hcl 50 Mg/Ml Vial IVPUSH 50 mg Q4H PRN Administration Itching Enoxaparin Sodium 40 mg 11/17/20 22:45 11/18/20 23:37 Enoxaparin Sodium 40 Mg/0.4 Ml Syringe SUBCUT Not Given Q24H LATASHA Folic Acid 1 mg 11/18/20 09:00 11/19/20 08:26 Folic Acid 1 Mg Tablet PO 1 mg DAILY LATASHA Administration Hydromorphone HCl 2 mg 11/19/20 10:31 11/19/20 12:46 Hydromorphone Hcl 2 Mg/Ml Vial IVPUSH 2 mg RQ4H PRN Administration Pain, Severe (Pain Scale 7-10) Protocol Hydroxyurea 500 mg 11/18/20 09:00 11/19/20 08:26 Hydroxyurea 500 Mg Capsule PO 500 mg DAILY LATASHA Administration Lactated Ringer's 1,000 mls @ 150 mls/hr 11/18/20 08:45 11/19/20 12:44 Lr IVCONT Not Given .Q6H40M LATASHA Sodium Chloride 3 ml 11/18/20 00:00 11/19/20 08:25 0.9 % Sodium Chloride Flush 3 Ml Syringe IVFLUSH 3 ml QSHIFT LATASHA Administration Labs CBC & Chem 7: 11/17/20 18:32 11/17/20 18:32 Microbiology Microbiology Results: Microbiology 11/17/20 18:32 Blood Culture - Preliminary Blood - Venous No growth after 24 hours. 11/17/20 18:32 Blood Culture - Preliminary Blood - Venous No growth after 24 hours. Assessment and Plan (1) Sickle cell crisis: Status: Acute Assessment and Plan: This is a 30 yo M with a PMH of sickle cell anemia who is admitted for pain crisis 1. Sickle cell anemia / pain crisis Appears more comfortable and not in severe pain as reported Continue IV dialudid , to decrease to 2 mg Q 4 hours p.r.n. Continue LR continue folate / hydroxyurea dvt pptx lovenox Quality Stroke Does the patient have a stroke diagnosis?: No VTE Prior VTE?: No VTE Risk Level:: Medical - moderate - high VTE Device Contraindication: Treatment Not Indicated VTE Drug Contraindication: N/A - Med Ordered
[2020-11-20] VITALS (7 sets, daily range): BP systolic 113–138; BP diastolic 61–77; PULSE 66–78; RESP 16–20; TEMP 36.4–37; O2SAT 97–100
[2020-11-20] MEDS: diphenhydrAMINE HCL 50 MG/ML VIAL IVPUSH ×6 (01:07→23:24)
[2020-11-20] MEDS: HYDROmorphone HCl 2 MG/ML VIAL IVPUSH ×4 (01:07→23:23)
[2020-11-20] MEDS: Lactated Ringers 1,000 ML 150 ML IVCONT ×2 (03:43→17:09)
[2020-11-20 07:15] LABS: Anion Gap 12 (12-20); Blood Urea Nitrogen 14 mg/dL (9-16); Calcium 8.8 mg/dL (8.4-10.2); Carbon Dioxide 25 mmol/L (22-29); Chloride 107 mmol/L (96-108); Creatinine Clr Calc Pharmacy 105.4; Estimated Glomerular Filt Rate > 60; Glucose Random 81 mg/dL (60-115); Potassium 4.5 mmol/L (3.3-5.1); Sodium 139 mmol/L (135-145)
[2020-11-20] MEDS: 0.9 % Sodium Chloride Flush 3 ML SYRINGE IVFLUSH ×2 (09:19→17:09)
[2020-11-20] MEDS: Hydroxyurea 500 MG CAPSULE PO (09:19)
[2020-11-20] MEDS: Folic Acid 1 MG TABLET PO (09:19)
[2020-11-20 09:45] LABS: Hematocrit 32.1 % (42-52); Hemoglobin 11.9 g/dl (14.0-18.0); Mean Corpuscular HGB Conc 37.1 g/dl (31.0-36.0); Mean Corpuscular Hemoglobin 33.3 pg (27.0-33.0); Mean Corpuscular Volume 89.9 fL (80-98); Mean Platelet Volume 9.7 fL (9.4-12.4); Platelet Count 311 X10*3/uL (160-400); Red Blood Count 3.57 X10*6/uL (4.60-5.80); Red Cell Distribution Width 19.4 % (11.0-16.0); White Blood Count 10.9 X10*3/uL (4.8-10.8)
[2020-11-20 09:53] LABS: NRBC Pct Auto 2.4 /100WBC (0.0-0.2)
--- NOTE | 2020-11-20 12:27 | MHC.CM.PN ---
Male 30 DX Sickle cell crisis No discharge today. DP is to his Mother's home in [place] via BUS. CM will follow.
[2020-11-20] MEDS: HYDROmorphone HCl 2 MG/ML VIAL 1 MG IVPUSH ×2 (13:11→19:13)
--- NOTE | 2020-11-20 15:41 | HO.PM.IMPN ---
Subjective Subjective Date of Service: 11/20/20 Interval History: the patient was seen and evaluated this morning Laying in bed, feels little better today but pain still significantly high Denies any fever, chills or shortness of breath No reported other overnight events. Systemic review: No fever, chills mainly episodes of chest pain, palpitation No shortness of breath or coughing No abdominal pain, nausea or vomiting No urinary symptoms No any rash or wounds Physical Exam Vital Signs: Vital Signs: Last Vital Signs Temp 98.6 F 11/20/20 15:06 Pulse 74 11/20/20 15:06 Resp 16 11/20/20 15:06 BP 131/67 11/20/20 15:06 Pulse Ox 100 11/20/20 15:06 Body Mass Index 21.7 Const: Other: Constitutional : Alert, oriented, not in distress Neck : Normal inspection, Supple Cardiovascular : RRR, S1 S2, no lower extremity edema Respiratory : Fair bilateral air entry, no crackles, wheezes or rhonchi Gastrointestinal: soft, lax, Normal bowel sounds, Non tender Skin : Warm, Dry Neurological : Alert & oriented x3, No focal deficit Objective Data Current Medications Generic Name Dose Route Start Last Admin Trade Name Freq PRN Reason Stop Dose Admin Diphenhydramine HCl 50 mg 11/19/20 10:31 11/20/20 13:11 Diphenhydramine Hcl 50 Mg/Ml Vial IVPUSH 50 mg Q4H PRN Administration Itching Enoxaparin Sodium 40 mg 11/17/20 22:45 11/19/20 21:00 Enoxaparin Sodium 40 Mg/0.4 Ml Syringe SUBCUT Not Given Q24H LATASHA Folic Acid 1 mg 11/18/20 09:00 11/20/20 09:19 Folic Acid 1 Mg Tablet PO 1 mg DAILY LATASHA Administration Hydromorphone HCl 1 mg 11/20/20 10:41 11/20/20 13:11 Hydromorphone Hcl 2 Mg/Ml Vial IVPUSH 1 mg RQ6H PRN Administration Pain, Severe (Pain Scale 7-10) Protocol Hydromorphone HCl 4 mg 11/20/20 10:41 Hydromorphone Hcl 4 Mg Tablet PO Q4H PRN Pain Hydroxyurea 500 mg 11/18/20 09:00 11/20/20 09:19 Hydroxyurea 500 Mg Capsule PO 500 mg DAILY LATASHA Administration Lactated Ringer's 1,000 mls @ 150 mls/hr 11/18/20 08:45 11/20/20 10:37 Lr IVCONT Not Given .Q6H40M LATASHA Sodium Chloride 3 ml 11/18/20 00:00 11/20/20 09:19 0.9 % Sodium Chloride Flush 3 Ml Syringe IVFLUSH 3 ml QSHIFT LATASHA Administration Labs CBC & Chem 7: 11/20/20 09:31 11/20/20 05:45 Labs: Laboratory Results - last 24 hr 11/20/20 11/20/20 11/20/20 05:45 05:45 09:31 MCV Not Reportable 89.9 MCH Not Reportable 33.3 H MCHC Not Reportable 37.1 H RDW Not Reportable 19.4 H Plt Count Not Reportable 311 MPV Not Reportable 9.7 Absolute Nucleated RBC Not Reportable 0.260 H Nucleated RBC % (auto) Not Reportable 2.4 H Anion Gap 12 Estim Creat Clear Calc 105.4 Estimated GFR > 60 Random Glucose 81 Calcium 8.8 Microbiology Microbiology Results: Microbiology 11/17/20 18:32 Blood Culture - Preliminary Blood - Venous No growth after 48 hours. 11/17/20 18:32 Blood Culture - Preliminary Blood - Venous No growth after 48 hours. Assessment and Plan (1) Sickle cell crisis: Status: Acute Assessment and Plan: This is a 30 yo M with a PMH of sickle cell anemia who is admitted for pain crisis Sickle cell pain crisis Improving Appears more comfortable and not in severe pain as reported decrease IV dialudid to 1 mg Q6 hours p.r.n. Start PO Dilaudid Continue LR continue folate / hydroxyurea dvt pptx lovenox Quality Stroke Does the patient have a stroke diagnosis?: No VTE Prior VTE?: No VTE Risk Level:: Medical - moderate - high VTE Device Contraindication: Treatment Not Indicated VTE Drug Contraindication: N/A - Med Ordered
[2020-11-21] MEDS: 0.9 % Sodium Chloride Flush 3 ML SYRINGE IVFLUSH ×4 (00:18→19:59)
[2020-11-21] MEDS: Lactated Ringers 1,000 ML 150 ML IVCONT (00:18)
[2020-11-21] MEDS: HYDROmorphone HCl 2 MG/ML VIAL 1 MG IVPUSH ×4 (01:24→19:58)
[2020-11-21 03:35] VITALS: BP 122/53; PULSE 97; RESP 16; TEMP 36.9; O2SAT 98
--- NOTE | 2020-11-21 04:00 | PC.NURSE ---
PT C/O IV SITE LEAKING.DRESSING CHANGED AND IV CHECKED.PATENT.NO LEAKING NOTED.PT DID NOT WANT IV FLUIDS RESUMED. UPDATED. STATES OK BUT MAKE SURE PT IS DRINKING.PT UPDATED AND TAKING PO FLUIDS WITHOUT DIFFICULTY.
[2020-11-21 07:13] VITALS: BP 113/81; PULSE 96; RESP 18; TEMP 36.6; O2SAT 98
[2020-11-21] MEDS: Hydroxyurea 500 MG CAPSULE PO (07:20)
[2020-11-21] MEDS: Folic Acid 1 MG TABLET PO (07:20)
[2020-11-21] MEDS: diphenhydrAMINE HCL 50 MG/ML VIAL IVPUSH ×3 (07:20→19:59)
[2020-11-21 12:00] VITALS: BP 120/58; PULSE 76; RESP 17; TEMP 36.9; O2SAT 97
--- NOTE | 2020-11-21 14:26 | HO.PM.IMPN ---
Subjective Subjective Date of Service: 11/21/20 Interval History: the patient was seen and evaluated this morning Laying in bed, still complaining of chest pain still significantly high Requiring less the medications Denies any fever, chills or shortness of breath No reported other overnight events. Systemic review: No fever, chills mainly episodes of chest pain, palpitation No shortness of breath or coughing No abdominal pain, nausea or vomiting No urinary symptoms No any rash or wounds Physical Exam Vital Signs: Vital Signs: Last Vital Signs Temp 98.5 F 11/21/20 12:00 Pulse 76 11/21/20 12:00 Resp 17 11/21/20 12:00 BP 120/58 L 11/21/20 12:00 Pulse Ox 97 11/21/20 12:00 Body Mass Index 21.7 Const: Other: Constitutional : Alert, oriented, not in distress Neck : Normal inspection, Supple Cardiovascular : RRR, S1 S2, no lower extremity edema Respiratory : Fair bilateral air entry, no crackles, wheezes or rhonchi Gastrointestinal: soft, lax, Normal bowel sounds, Non tender Skin : Warm, Dry Neurological : Alert & oriented x3, No focal deficit Objective Data Current Medications Generic Name Dose Route Start Last Admin Trade Name Freq PRN Reason Stop Dose Admin Diphenhydramine HCl 50 mg 11/19/20 10:31 11/21/20 13:46 Diphenhydramine Hcl 50 Mg/Ml Vial IVPUSH 50 mg Q4H PRN Administration Itching Enoxaparin Sodium 40 mg 11/17/20 22:45 11/20/20 23:44 Enoxaparin Sodium 40 Mg/0.4 Ml Syringe SUBCUT Not Given Q24H LATASHA Folic Acid 1 mg 11/18/20 09:00 11/21/20 07:20 Folic Acid 1 Mg Tablet PO 1 mg DAILY LATASHA Administration Hydromorphone HCl 1 mg 11/20/20 10:41 11/21/20 13:46 Hydromorphone Hcl 2 Mg/Ml Vial IVPUSH 1 mg RQ6H PRN Administration Pain, Severe (Pain Scale 7-10) Protocol Hydromorphone HCl 4 mg 11/20/20 10:41 11/21/20 12:30 Hydromorphone Hcl 4 Mg Tablet PO 4 mg Q4H PRN Administration Pain Hydroxyurea 500 mg 11/18/20 09:00 11/21/20 07:20 Hydroxyurea 500 Mg Capsule PO 500 mg DAILY LATASHA Administration Sodium Chloride 3 ml 11/18/20 00:00 11/21/20 07:20 0.9 % Sodium Chloride Flush 3 Ml Syringe IVFLUSH 3 ml QSHIFT LATASHA Administration Labs CBC & Chem 7: 11/20/20 09:31 11/20/20 05:45 Assessment and Plan (1) Sickle cell crisis: Status: Acute Assessment and Plan: This is a 30 yo M with a PMH of sickle cell anemia who is admitted for pain crisis Sickle cell pain crisis Improving Appears more comfortable and not in severe pain as reported decrease IV dialudid to 1 mg Q6 hours p.r.n. Continue PO Dilaudid Continue LR continue folate / hydroxyurea dvt pptx lovenox Quality Stroke Does the patient have a stroke diagnosis?: No VTE Prior VTE?: No VTE Risk Level:: Medical - moderate - high VTE Device Contraindication: Treatment Not Indicated VTE Drug Contraindication: N/A - Med Ordered
[2020-11-21 15:31] VITALS: BP 122/63; PULSE 77; RESP 18; TEMP 36.7; O2SAT 98
[2020-11-21 23:35] VITALS: BP 130/76; PULSE 86; RESP 12; TEMP 37; O2SAT 98
[2020-11-22] MEDS: diphenhydrAMINE HCL 50 MG/ML VIAL IVPUSH (02:01)
[2020-11-22] MEDS: HYDROmorphone HCl 2 MG/ML VIAL 1 MG IVPUSH (02:01)
[2020-11-22 03:28] VITALS: BP 105/57; PULSE 89; RESP 12; TEMP 37; O2SAT 97
[2020-11-22 08:00] VITALS: BP 106/74; PULSE 74; RESP 20; TEMP 36.6; O2SAT 98
[2020-11-22] MEDS: Hydroxyurea 500 MG CAPSULE PO (08:30)
[2020-11-22] MEDS: Folic Acid 1 MG TABLET PO (08:31)
--- NOTE | 2020-11-22 11:09 | MHC.CM.PN ---
Male 30 DX SS Crisis. He is discharged to his Mother's home today. No services needed. He will travel via bus. Bus pass provided.
[2020-11-22 11:15] VITALS: BP 104/59; PULSE 73; RESP 18; TEMP 36.4; O2SAT 97
--- NOTE | 2020-11-22 11:15 | PM.DS ---
DS: Providers Provider Date of Service: 11/22/20 Date of admission: 11/17/20 22:37 Primary care physician: None Physician DS: Diagnosis Discharge Diagnosis (1) Sickle cell crisis: Status: Acute DS: Medications Discharge Medications Home Medications: Home Medications Medication Instructions Recorded Confirmed folic acid 1 mg tablet 1 mg PO DAILY 11/17/20 11/17/20 hydromorphone 4 mg tablet 4 mg PO Q4H PRN 11/17/20 11/17/20 hydroxyurea 500 mg capsule 500 mg PO DAILY 11/17/20 11/17/20 DS: Summary Hospital Course Hospital Course: Admission note HPI 30-year-old male with history of sickle cell disease, who presented with whole body pain.? History is from the patient and from ED notes.? Patient endorses that he started having whole body pain earlier today.? The pain is especially bad in his chest.? He recognizes this as a sickle cell crisis pain.? Otherwise, he denies shortness of breath, fever, chills, nausea or vomiting. In the ED, vitals were significant for pulses high as 101, otherwise vitals were unremarkable.? Pertinent labs include hemoglobin of 10.6, reticulocyte% 3.1 (high), total bilirubin 3.7. Chest x-ray was negative for acute abnormality. EKG revealed sinus bradycardia with a ventricular rate of 57 and a QTC of 410. In the ED, the patient was treated with a total of 4 mg of IV Dilaudid, and 1 L IV fluid bolus.? He is being admitted for sickle cell pain crisis. Hospital course Patient was admitted to the hospital for treatment of pain crisis. Patient was complaining mainly of bone and chest pain. Images an EKG negative for any acute findings. Treated with IV fluid and IV Dilaudid with good response. IV Dilaudid weaned down and he was started on oral form with fair response. He was able to tolerate diet and ambulate on room air. To be discharged home to continue with his home does Dilaudid as needed Time Spent with Patient Time attestation: Total time spent providing and/or coordinating discharge services: Discharge coordination time: Greater than 30 minutes Quality: Stroke Does the patient have a stroke diagnosis?: No Physical Exam Vital Signs: Vital Signs: Last Vital Signs Temp 97.8 F 11/22/20 08:00 Pulse 74 11/22/20 08:00 Resp 20 11/22/20 08:00 BP 106/74 11/22/20 08:00 Pulse Ox 98 11/22/20 08:00 Body Mass Index 21.7 Const: Other: Constitutional : Alert, oriented, not in distress Neck : Normal inspection, Supple Cardiovascular : RRR, S1 S2, no lower extremity edema Respiratory : Fair bilateral air entry, no crackles, wheezes or rhonchi Gastrointestinal: soft, lax, Normal bowel sounds, Non tender Skin : Warm, Dry Neurological : Alert & oriented x3, No focal deficit DS: Data Data Completed and Pending Labs on day of discharge: Preliminary micro results at discharge 11/17/20 18:32 Blood Culture - Preliminary Blood - Venous No growth after 48 hours. 11/17/20 18:32 Blood Culture - Preliminary Blood - Venous No growth after 48 hours. Discharge Plan Discharge Patient Disposition: Home, Self-Care Discharge Diagnosis: Sickle cell crisis Referrals: Physician,None [Primary Care Provider] - 1 Week Discharge Medications: Continued hydroxyurea 500 mg capsule 500 mg PO DAILY RF: 0 folic acid 1 mg tablet 1 mg PO DAILY RF: 0 hydromorphone 4 mg tablet 4 mg PO Q4H PRN (Reason: Pain) RF: 0 Discharge Orders: Discharge Order (Routine); Ordered 11/22/20 Ordered By: Mary Swanson Diet: advance to usual diet Activity on Discharge: As tolerated Stand Alone Forms: Patient Portal Discharge page Care Plan Goals: Read below Health Concerns: Read below Plan of Treatment: You were admitted to the hospital for treatment of pain crisis. Started on IV fluid and IV Dilaudid with good response over the course of hospital stay. Assessment: Stay hydrated and take pain medications as needed
== END 2020-11-22 11:35 | disposition home or self-care (01) | DRG 662 ==
LOC: HO.ED 21:17 → HO.EDOVER 11-18 08:03 → HO.IMC 11-18 13:23
PROVIDERS: Nurse Practitioner Family; Admitting Provider Internal Medicine; Emergency Provider Internal Medicine; Visit Provider Student in an Organized Health Care Education/Training Program
DX: D57.00 Hb-SS disease with crisis, unspecified (principal); Z20.822 Contact with and (suspected) exposure to COVID-19; Z79.890 Hormone replacement therapy; Z88.5 Allergy status to narcotic agent; Z79.899 Other long term (current) drug therapy
CPT/HCPCS: 36415; 71046; 80048; 80076; 83605; 83735; 84484; 85007; 85025; 85027; 85045; 85379; 85610; 87040; 87635; 93005; 99220; 99285; J1170; J1200; Q0163